=== PATIENT | male | born 1960 | race Asian ===

== ENCOUNTER 2019-12-29 06:21 | Day surgery (SDC) | payer MEDICAID ==
[~2019-12-29] VITALS: Ht 162.6 cm; Wt 62.7 kg
[~2019-12-29 06:21] MED LIST: SODIUM CHLORIDE 0.9% 1,000 ML ONE
[2019-12-29] MEDS ORDERED: ALBUTEROL SULFATE 2.5 MG/0.5 ML NEB SOLUTION NEB ONE (06:22)
[2019-12-29] MEDS ORDERED: LIDOCAINE 2% 30 ML JELLY TP ONE (06:22)
[2019-12-29] MEDS ORDERED: BENZOCAINE 20% 50 MCG/SPRAY 57 GM TP ONE (06:22)
[2019-12-29] MEDS ORDERED: MIDAZOLAM HCL 2 MG/2 ML VIAL ONE (06:35)
[2019-12-29] MEDS ORDERED: FentaNYL CITRATE-PF 100 MCG/2 ML VIAL ONE (06:36)
[2019-12-29] MEDS ORDERED: SODIUM CHLORIDE 0.9% 1,000 ML IV ONE (07:00)
[2019-12-29] MEDS ORDERED: GLIM1TAB18 PO (07:04)
[2019-12-29] MEDS ORDERED: AMLO5TAB66 PO (07:04)
[2019-12-29] MEDS ORDERED: ATOR40TA71 PO (07:04)
[2019-12-29] MEDS ORDERED: ASPI-728 PO (07:17)
[2019-12-29 07:24] LABS: GLUCOMETER DEV NAME(LOC) SDS.; GLUCOSE,POINT OF CARE 151 MG/DL (70-110)
[2019-12-29] MEDS ORDERED: MethylPREDNISolone SOD SUCC 125 MG/2 ML VIAL IVP ONE (08:30)
[2019-12-29] MEDS ORDERED: MethylPREDNISolone SOD SUCC 125 MG/2 ML VIAL ONE (09:08)
[2019-12-29] MEDS ORDERED: OXYGEN THERAPY IH SCH (20:00)
== END 2019-12-29 10:05 | disposition home or self-care (01) ==
LOC: SURGERY 06:21
PROVIDERS: ATTEND Internal Medicine Critical Care Medicine
DX: R05 Cough (principal); R04.2 Hemoptysis; J34.89 Other specified disorders of nose and nasal sinuses; J98.8 Other specified respiratory disorders; J38.4 Edema of larynx; B37.0 Candidal stomatitis; Z88.1 Allergy status to other antibiotic agents; E11.9 Type 2 diabetes mellitus without complications; I11.9 Hypertensive heart disease without heart failure; G47.30 Sleep apnea, unspecified; Z87.01 Personal history of pneumonia (recurrent); Z95.0 Presence of cardiac pacemaker; Z98.890 Other specified postprocedural states; Z87.891 Personal history of nicotine dependence; Z79.899 Other long term (current) drug therapy
CPT/HCPCS: 31623; 31624; 71045; 82962; 87070 ×2; 87101; 87206; 87220; 87252 ×2; 93005; J2250; J2930; J3010; J7030; 87015; 87205; 88108; 88312